=== PATIENT | male | born 1990 | race Caucasian/White ===

== ENCOUNTER 2016-07-19 12:24 | Emergency (ER) | payer OTHER ==
--- NOTE | 2016-07-19 12:58 | ER Document Report ---
ED Medical Screen (RME) - General Chief Complaint: Chest Pain Stated Complaint: CHEST PAIN Notes: Patient has been experiencing mid anterior chest pains which come and go over the past week. They are worsened if he is up and walking, and decreased to be slowing down. The pain seemed to radiate into his left shoulder and arm. Patient has felt some runny nose over the last couple of days, but denies any cough or cold or chest congestion or URI symptoms. No shortness of breath or difficulty breathing. No fevers. No significant past medical history. Does smoke cigarettes. EKG shows QRS complexes that look like LVH or, more likely, early repolarization. I think this is a normal EKG variant. TRAVEL OUTSIDE OF THE [place] IN LAST 30 DAYS: No - Related Data Allergies/Adverse Reactions: No Known Allergies Allergy (Verified 07/19/16 12:36) Past Medical History Pulmonary Medical History: Reports: Hx Asthma Renal/ Medical History: Denies: Hx Peritoneal Dialysis Psychiatric Medical History: Reports: Hx Attention Deficit Hyperactivity Disorder, Hx Depression - Immunizations Hx Diphtheria, Pertussis, Tetanus Vaccination: Yes - unkown Physical Exam - Vital signs Vitals: Temp Pulse Resp BP Pulse Ox 98.4 F 97 20 120/58 L 98 07/19/16 12:35 07/19/16 12:35 07/19/16 12:35 07/19/16 12:35 07/19/16 12:35 Course - Vital Signs Vital signs: Temp Pulse Resp BP Pulse Ox 98.4 F 97 20 120/58 L 98 07/19/16 12:35 07/19/16 12:35 07/19/16 12:35 07/19/16 12:35 07/19/16 12:35
[2016-07-19 13:48] LABS: ABSOLUTE EOSINOPHILS # (AUTO) 0.1 10^3/uL (0.0-0.6); ABSOLUTE LYMPHOCYTES (AUTO) 0.9 10^3/uL (0.5-4.7); ABSOLUTE MONOCYTES (AUTO) 0.6 10^3/uL (0.1-1.4); BASOPHILS % (AUTO) 0.8 % (0-2); EOSINOPHILS % (AUTO) 2.5 % (0-6); HEMATOCRIT 47.3 % (37.9-51.0); HEMOGLOBIN 16.2 g/dL (13.5-17.0); HGB HCT DIFFERENCE 1.3; LYMPHOCYTES % (AUTO) 16.6 % (13-45); MEAN CORPUSCULAR HEMOGLOBIN 31.1 pg (27.0-33.4); MEAN CORPUSCULAR HGB CONC 34.2 g/dL (32.0-36.0); MEAN CORPUSCULAR VOLUME 91 fl (80-97); MONOCYTES % (AUTO) 9.8 % (3-13); RED CELL DISTRIBUTION WIDTH 12.4 % (11.5-14.0); SEGMENTED NEUTROPHILS % (AUTO) 70.3 % (42-78); WHITE BLOOD COUNT 5.7 10^3/uL (4.0-10.5)
[2016-07-19 14:10] LABS: ALANINE AMINOTRANSFERASE 45 U/L (21-72); ALBUMIN 4.6 g/dL (3.5-5.0); ALKALINE PHOSPHATASE 50 U/L (38-126); ANION GAP 15 (5-19); ASPARTATE AMINO TRANSFERASE 36 U/L (17-59); BILIRUBIN,DIRECT 0.2 mg/dL (0.0-0.4); BILIRUBIN,TOTAL 0.7 mg/dL (0.2-1.3); BLOOD UREA NITROGEN 10 mg/dL (7-20); C-REACTIVE PROTEIN 16.2 mg/L (<10.0); CALCIUM 9.6 mg/dL (8.4-10.2); CARBON DIOXIDE 27 mmol/L (22-30); CHLORIDE 101 mmol/L (98-107); CREATINE KINASE 79 U/L (55-170); CREATININE RESULT 0.72 mg/dL (0.52-1.25); GLUCOSE 125 mg/dL (75-110); POTASSIUM 4.2 mmol/L (3.6-5.0); SODIUM 142.9 mmol/L (137-145); TOTAL PROTEIN 7.6 g/dL (6.3-8.2)
[2016-07-19 14:19] LABS: CREATINE KINASE MB 0.38 ng/mL (<4.55)
[2016-07-19 14:24] LABS: TROPONIN I < 0.012 ng/mL
[2016-07-19 14:33] LABS: ERYTHROCYTE SEDIMENTATION RATE 4 mm/hr (0-15)
[2016-07-19 14:52] VITALS: BP 125/75
--- NOTE | 2016-07-19 14:55 | ER Document Report ---
ED General - General Chief Complaint: Chest Pain Stated Complaint: CHEST PAIN Mode of Arrival: Ambulatory Information source: Patient Notes: 25-year-old male presents with complaints of chest pain. Patient notes the pain worsens when he sits forward results when he lays back patient denies any fevers or chills denies any shortness breath difficult to breathing patient denies any previous similar episodes. Patient denies any family history of cardiac events TRAVEL OUTSIDE OF THE [place] IN LAST 30 DAYS: No - HPI Onset: Last week Onset/Duration: Persistent Quality of pain: Sharp Severity: Mild Pain Level: 1 Associated symptoms: Chest pain Exacerbated by: Denies Relieved by: Denies Similar symptoms previously: No Recently seen / treated by doctor: No - Related Data Allergies/Adverse Reactions: No Known Allergies Allergy (Verified 07/19/16 12:36) Past Medical History - Social History Smoking Status: Never Smoker Cigarette use (# per day): No Chew tobacco use (# tins/day): No Smoking Education Provided: No Family History: Reviewed & Not Pertinent Patient has suicidal ideation: No Patient has homicidal ideation: No Pulmonary Medical History: Reports: Hx Asthma Renal/ Medical History: Denies: Hx Peritoneal Dialysis Psychiatric Medical History: Reports: Hx Attention Deficit Hyperactivity Disorder, Hx Depression - Immunizations Hx Diphtheria, Pertussis, Tetanus Vaccination: Yes - unkown Review of Systems - Review of Systems Notes: REVIEW OF SYSTEMS: CONSTITUTIONAL : Denies fever, chills, or sweats. Denies recent illness. EENT: Denies eye, ear, throat, or mouth pain or symptoms. Denies nasal or sinus congestion or discharge. Denies throat, tongue, or mouth swelling or difficulty swallowing. CARDIOVASCULAR: Admits chest pain RESPIRATORY: Denies cough, cold, or chest congestion. Denies shortness of breath, difficulty breathing, or wheezing. GASTROINTESTINAL: Denies abdominal pain or distention. Denies nausea, vomiting , or diarrhea. Denies blood in vomitus, stools, or per rectum. Denies black, tarry stools. Denies constipation. GENITOURINARY: Denies difficulty urinating, painful urination, burning, frequency, blood in urine, or discharge. MUSCULOSKELETAL: Denies back or neck pain or stiffness. Denies joint pain or swelling. SKIN: Denies rash, lesions or sores. HEMATOLOGIC : Denies easy bruising or bleeding. LYMPHATIC: Denies swollen, enlarged glands. NEUROLOGICAL: Denies confusion or altered mental status. Denies passing out or loss of consciousness. Denies dizziness or lightheadedness. Denies headache. Denies weakness or paralysis or loss of use of either side. Denies problems with gait or speech. Denies sensory loss, numbness, or tingling. Denies seizures. PSYCHIATRIC: Denies anxiety or stress. Denies depression, suicidal ideation, or homicidal ideation. ALL OTHER SYSTEMS REVIEWED AND NEGATIVE. Dictation was performed using [employer] voice recognition software PHYSICAL EXAMINATION: GENERAL: Well-appearing, well-nourished and in no acute distress. HEAD: Atraumatic, normocephalic. EYES: Pupils equal round and reactive to light, extraocular movements intact, sclera anicteric, conjunctiva are normal. ENT: Nares patent, oropharynx clear without exudates. Moist mucous membranes. NECK: Normal range of motion, supple without lymphadenopathy LUNGS: Breath sounds clear to auscultation bilaterally and equal. No wheezes rales or rhonchi. HEART: Regular rate and rhythm without murmurs ABDOMEN: Soft, nontender, nondistended abdomen. No guarding, no rebound. No masses appreciated. Musculoskeletal: Normal range of motion, no pitting or edema. No cyanosis. NEUROLOGICAL: Cranial nerves grossly intact. Normal speech, normal gait. Normal sensory, motor exams PSYCH: Normal mood, normal affect. SKIN: Warm, Dry, normal turgor, no rashes or lesions noted. Physical Exam - Vital signs Vitals: Temp Pulse Resp BP Pulse Ox 98.4 F 97 20 120/58 L 98 07/19/16 12:35 07/19/16 12:35 07/19/16 12:35 07/19/16 12:35 07/19/16 12:35 Course - Re-evaluation Re-evalutation: 07/19/16 14:55 Patient's EKG is consistent with peaked T waves, no significant reciprocal changes noted, patient's presentation is consistent with pericarditis, CRP is elevated which would fit this picture. I did speak with Dr. Mchugh who agrees with this evaluation, patient will be started on anti-inflammatory given follow- up with him tomorrow for reevaluation After performing a Medical Screening Examination, I estimate there is LOW risk for RUPTURED ESOPHAGUS, PNEUMOTHORAX, PULMONARY EMBOLISM, ACUTE CORONARY SYNDROME, OR THORACIC AORTIC DISSECTION, thus I consider the discharge disposition reasonable. I have reevaluated this patient multiple times and no significant life threatening changes are noted. The patient and I have discussed the diagnosis and risks, and we agree with discharging home with close follow-up. We also discussed returning to the Emergency Department immediately if new or worsening symptoms occur. We have discussed the symptoms which are most concerning (e.g., bloody sputum, worsening pain or shortness of breath) that necessitate immediate return. - Vital Signs Vital signs: Temp Pulse Resp BP Pulse Ox 98.4 F 97 20 120/58 L 98 07/19/16 12:35 07/19/16 12:35 07/19/16 12:35 07/19/16 12:35 07/19/16 12:35 - Laboratory Result Diagrams: 07/19/16 13:30 07/19/16 13:30 Laboratory results interpreted by me: 07/19/16 13:30 Glucose 125 H C-Reactive Protein 16.2 H - Diagnostic Test Radiology reviewed: Image reviewed, Reports reviewed - EKG Interpretation by Me EKG shows normal: Sinus rhythm, [place], Intervals, QRS Complexes - Peaked T waves in leads V2 V3 and V4 V5 Discharge - Discharge Clinical Impression: Pericarditis Qualifiers: Pericarditis type: unspecified type Chronicity: acute Qualified Code(s): I30.9 - Acute pericarditis, unspecified Chest pain Qualifiers: Chest pain type: unspecified Qualified Code(s): R07.9 - Chest pain, unspecified Condition: Stable Disposition: HOME, SELF-CARE Instructions: Pericarditis ([facility]) Prescriptions: Naproxen 500 mg PO BID #30 tablet Referrals: YULIANA MCHUGH MD [ACTIVE STAFF] - Follow up tomorrow
--- NOTE | 2016-07-19 20:06 | EKG REPORT ---
SEVERITY:- OTHERWISE NORMAL ECG - SINUS RHYTHM BORDERLINE RIGHT AXIS DEVIATION ST ELEV, PROBABLE NORMAL EARLY REPOL PATTERN : Confirmed by: Sheyla Kitchen MD 19-Jul-2016 20:04:58
== END 2016-07-19 15:07 | disposition home or self-care (01) ==
LOC: ER 12:24
DX: I30.9 Acute pericarditis, unspecified (principal); R07.9 Chest pain, unspecified
CPT/HCPCS: 36415; 71020; 80053; 82550; 82553; 84484; 85025; 85652; 86140; 93005; 93010; 99285

== ENCOUNTER 2016-07-21 23:12 | Emergency (ER) | payer OTHER ==
[2016-07-21] MEDS ORDERED: KETOROLAC TROMETHAMINE INJ/PF 30 MG/1 ML SDV IV ONE (23:48)
--- NOTE | 2016-07-21 23:53 | ER Document Report ---
ED General - General Chief Complaint: Chest Pain Stated Complaint: CHEST PAIN Notes: Patient is a 25-year-old male without past medical history who presents with concerns of ongoing left-sided chest pain. He does described as an intermittent , sharp, stabbing, severe pain. He states the pain is intermittent and nothing seems to worsen it or improve it. He was seen several days ago the emergency department and diagnosed with pericarditis. He has not yet started naproxen with which he was sent home. He is scheduled to follow-up with cardiology for the possible diagnosis of pericarditis. Patient has not had any associated vomiting, diaphoresis, syncope, or shortness of breath. Exertion does not worsen his symptoms. No history of similar symptoms in the past. TRAVEL OUTSIDE OF THE [place] IN LAST 30 DAYS: No - Related Data Allergies/Adverse Reactions: No Known Allergies Allergy (Verified 07/19/16 12:36) Past Medical History - General Information source: Patient - Social History Smoking Status: Never Smoker Frequency of alcohol use: None Drug Abuse: None Lives with: Spouse/Significant other Family History: Reviewed & Not Pertinent Pulmonary Medical History: Reports: Hx Asthma Renal/ Medical History: Denies: Hx Peritoneal Dialysis Psychiatric Medical History: Reports: Hx Attention Deficit Hyperactivity Disorder, Hx Depression - Immunizations Hx Diphtheria, Pertussis, Tetanus Vaccination: Yes - unkown Review of Systems - Review of Systems Notes: Constitutional: Negative for fever. HENT: Negative for sore throat. Eyes: Negative for visual changes. Cardiovascular: Positive for chest pain. Respiratory: Negative for shortness of breath. Gastrointestinal: Negative for abdominal pain, vomiting or diarrhea. Genitourinary: Negative for dysuria. Musculoskeletal: Negative for back pain. Skin: Negative for rash. Neurological: Negative for headaches, weakness or numbness. 10 point ROS negative except as marked above and in HPI. Physical Exam - Vital signs Vitals: Temp Pulse Resp BP Pulse Ox 98.6 F 77 18 135/77 H 100 07/21/16 23:23 07/21/16 23:23 07/21/16 23:23 07/21/16 23:23 07/21/16 23:23 Interpretation: Normal Notes: PHYSICAL EXAMINATION: GENERAL: Well-appearing, well-nourished and in no acute distress. HEAD: Atraumatic, normocephalic. EYES: Pupils equal round and reactive to light, extraocular movements intact, sclera anicteric, conjunctiva are normal. ENT: nares patent, oropharynx clear without exudates. Moist mucous membranes. NECK: Normal range of motion, supple without lymphadenopathy LUNGS: Breath sounds clear to auscultation bilaterally and equal. No wheezes rales or rhonchi. HEART: Regular rate and rhythm without murmurs Chest wall: Reproducible pain on palpation of the left chest wall ABDOMEN: Soft, nontender, normoactive bowel sounds. No guarding, no rebound. No masses appreciated. EXTREMITIES: Normal range of motion, no pitting or edema. No cyanosis. NEUROLOGICAL: No focal neurological deficits. Moves all extremities spontaneously and on command. PSYCH: Normal mood, normal affect. SKIN: Warm, Dry, normal turgor, no rashes or lesions noted. Course - Re-evaluation Re-evalutation: 07/21/16 23:49 Patient presents with ongoing intermittent left-sided chest pain but is otherwise very well in appearance. Patient is PERC criteria negative and I do not suspect an acute pulmonary embolus. No tachycardia, dyspnea or hypoxemia. Bedside echocardiogram does not demonstrate any evidence of a pericardial effusion or regional wall motion abnormalities. His EKG remains unchanged and does not appear consistent with pericarditis to me. There are no ST elevations and no [place] depressions. Peak T waves and isolation will be an atypical finding for pericarditis. However, given that patient did have some positional discomfort it is a possible diagnosis. Alternative differential considerations include costochondritis as patient is exquisitely tender on palpation the left chest wall and does have pain with movement and coughing. Will obtain a repeat troponin to ensure that there is no evidence of myocardial injury either from myopericarditis or an acute ischemic injury again for which I have a very low clinical suspicion. If this remains normal plan for discharge home with return precautions, recommendations to actually begin using NSAIDs that were prescribed to him as he has not started using these, and return precautions. - Vital Signs Vital signs: Temp Pulse Resp BP Pulse Ox 97.8 F 69 18 133/71 H 98 07/22/16 01:34 07/22/16 01:34 07/22/16 01:34 07/22/16 01:34 07/22/16 01:34 - EKG Interpretation by Me Additional EKG results interpreted by me: 07/21/16 23:52 Normal sinus rhythm. Rate 99. No ST elevations or depressions. Early repolarization. No significant T-wave peaks. Unchanged from prior. Discharge - Discharge Clinical Impression: Chest pain Qualifiers: Chest pain type: unspecified Qualified Code(s): R07.9 - Chest pain, unspecified Condition: Good Disposition: HOME, SELF-CARE Additional Instructions: Your chest pain is likely related to inflammation of your chest wall or possible pericarditis a lead EKG does not suggest this diagnosis. You should begin taking ibuprofen 600 mg every 6 hours as needed for discomfort. Return if you develop persistent shortness of breath, vomiting, pass out, or have any other symptoms that are worrisome to you.
[2016-07-22 01:38] VITALS: BP 133/71
--- NOTE | 2016-07-23 16:57 | EKG REPORT ---
SEVERITY:- OTHERWISE NORMAL ECG - SINUS RHYTHM BORDERLINE RIGHT AXIS DEVIATION ST ELEV, PROBABLE NORMAL EARLY REPOL PATTERN : Confirmed by: Sheyla Kitchen MD 23-Jul-2016 16:57:03
== END 2016-07-22 01:38 | disposition home or self-care (01) ==
LOC: ER 23:12
DX: R07.9 Chest pain, unspecified (principal); J45.909 Unspecified asthma, uncomplicated
CPT/HCPCS: 93005; 99285; 96374; 36415; 84484; 93010; J1885

== ENCOUNTER 2018-03-18 22:00 | Emergency (ER) | payer OTHER ==
[2018-03-18] MEDS ORDERED: METOCLOPRAMIDE HCL ORAL SOLN 10 MG/10 ML UDCUP PO ONE (22:51)
[2018-03-18] MEDS ORDERED: MAG HYDROX/AL HYDROX/SIMETH SUSP 30 ML UDCUP PO ONE (22:51)
[2018-03-18] MEDS ORDERED: LIDOCAINE 2% VISCOUS SOLN 20 ML UDCUP PO ONE (22:51)
--- NOTE | 2018-03-18 22:53 | ER Document Report ---
ED Medical Screen (RME) - General Chief Complaint: Epigastric Pain Stated Complaint: CHEST PAIN Time Seen by Provider: 03/18/18 22:49 Notes: Patient is a 27-year-old male presents to the emergency department after choking episode on steak. Patient states he was eating steak when he felt as though it got stuck in his throat. Patient states he started coughing a lot and then inevitably vomited. States that he did vomit the piece of steak. States since that episode he has been unable to swallow his secretions and has some chest discomfort. Past medical history: Pericarditis, asthma Medications: Albuterol Allergies: None Physical exam: Lung sounds clear and equal all ramos, no crepitus, ecchymosis, erythema noted to anterior posterior chest wall. I have greeted and performed a rapid initial assessment of this patient. A comprehensive ED assessment and evaluation of the patient, analysis of test results and completion of the medical decision making process will be conducted by additional ED providers. TRAVEL OUTSIDE OF THE [place] IN LAST 30 DAYS: No - Related Data Allergies/Adverse Reactions: No Known Allergies Allergy (Verified 07/19/16 12:36) Past Medical History Pulmonary Medical History: Reports: Hx Asthma Renal/ Medical History: Denies: Hx Peritoneal Dialysis Psychiatric Medical History: Reports: Hx Attention Deficit Hyperactivity Disorder, Hx Depression - Immunizations Hx Diphtheria, Pertussis, Tetanus Vaccination: Yes - unkown Physical Exam - Vital signs Vitals: Temp Pulse Resp BP Pulse Ox 97.8 F 92 16 119/76 96 03/18/18 22:27 03/18/18 22:27 03/18/18 22:27 03/18/18 22:27 03/18/18 22:27 Course - Vital Signs Vital signs: Temp Pulse Resp BP Pulse Ox 97.8 F 92 16 119/76 96 03/18/18 22:27 03/18/18 22:27 03/18/18 22:27 03/18/18 22:27 03/18/18 22:27
[2018-03-19] MEDS ORDERED: ONDANSETRON 4 MG TAB.RAPDIS PO ONE (01:05)
--- NOTE | 2018-03-19 01:06 | ER Document Report ---
ED GI/ - General Chief Complaint: Epigastric Pain Stated Complaint: CHEST PAIN Time Seen by Provider: 03/18/18 22:49 Notes: 27-year-old male to the emergency department chief complaint of feels like something stuck in his throat. Patient was eating some chicken. [place] like something got stuck in his throat. Had significant pain in the mid chest area and epigastric region. Vomited. Has been vomiting but still feels like something is stuck. Every time he tries to swallow he feels like he needs to vomit. Not tried to drink anything yet. TRAVEL OUTSIDE OF THE [place] IN LAST 30 DAYS: No - HPI Onset: Just prior to arrival Timing/Duration: Constant Quality of pain: [place] Severity at maximum: Severe Severity in ED: Moderate Pain Level: 3 Location: Chest pain, Epigastric Associated symptoms: Nausea, Vomiting Exacerbated by: Food - Related Data Allergies/Adverse Reactions: No Known Allergies Allergy (Verified 07/19/16 12:36) Past Medical History - General Information source: Patient - Social History Smoking Status: Never Smoker Chew tobacco use (# tins/day): Yes Frequency of alcohol use: None Drug Abuse: None Lives with: Family Family History: Reviewed & Not Pertinent Patient has suicidal ideation: No Patient has homicidal ideation: No Pulmonary Medical History: Reports: Hx Asthma Renal/ Medical History: Denies: Hx Peritoneal Dialysis Psychiatric Medical History: Reports: Hx Attention Deficit Hyperactivity Disorder, Hx Depression - Immunizations Hx Diphtheria, Pertussis, Tetanus Vaccination: Yes - unkown Review of Systems - Review of Systems Notes: Constitutional: denies: Chills, Diaphoresis, Fever, Malaise, Weakness EENT: denies: Eye discharge, Blurred vision, Tearing, Double vision, Nose congestion, Nose discharge, Throat swelling, Mouth pain Cardiovascular: denies: Palpitations, Heart racing, Orthopnea, Dyspnea, Chest pain Respiratory: denies: Cough, Hurts to breathe, Wheezing, Shortness of breath Gastrointestinal: Abdominal pain, nausea, vomiting, feeling of something stuck in his throat Genitourinary: denies: Burning, Dysuria, Discharge, Frequency, Flank pain, Hematuria Musculoskeletal: denies: Joint pain, Joint swelling, Muscle pain, Muscle stiffness, back pain Hematologic/Lymphatic: denies: Anemia, Easy bleeding, Easy bruising, Blood clots Neurological/Psychological: denies: Confusion, Dementia, Depression, Loss of consciousness Skin: No lesions, no masses, no skin breakdown, no abscesses Physical Exam - Vital signs Vitals: Temp Pulse Resp BP Pulse Ox 97.8 F 92 16 119/76 96 03/18/18 22:27 03/18/18 22:27 03/18/18 22:27 03/18/18 22:27 03/18/18 22:27 Interpretation: Normal - General General appearance: Appears well, Alert - HEENT Head: Normocephalic, Atraumatic Eyes: Normal Pupils: PERRL - Respiratory Respiratory status: No respiratory distress Chest status: Nontender Breath sounds: Normal Chest palpation: Normal - Cardiovascular Rhythm: Regular Heart sounds: Normal auscultation Murmur: No - Abdominal Inspection: Normal Distension: No distension Bowel sounds: Normal Tenderness: Nontender Organomegaly: No organomegaly - Back Back: Normal, Nontender - Extremities General upper extremity: Normal inspection, Nontender, Normal color, Normal ROM , Normal temperature General lower extremity: Normal inspection, Nontender, Normal color, Normal ROM , Normal temperature, Normal weight bearing. No: Marychuy's sign - Neurological Neuro grossly intact: Yes Cognition: Normal Orientation: AAOx4 Rosie Coma Scale Eye Opening: Spontaneous Rosie Coma Scale Verbal: Oriented Rosie Coma Scale Motor: Obeys Commands [place] Coma Scale Total: 15 Speech: Normal Motor strength normal: LUE, RUE, LLE, RLE Sensory: Normal - Psychological Associated symptoms: Normal affect, Normal mood - Skin Skin Temperature: Warm Skin Moisture: Dry Skin Color: Normal Course - Re-evaluation Re-evalutation: 03/19/18 03:07 Laboratory 03/19/18 03/19/18 01:30 01:30 WBC 10.0 RBC 5.42 Hgb 17.1 H Hct 47.7 MCV 88 MCH 31.6 MCHC 35.9 RDW 12.5 Plt Count 247 Seg Neutrophils % 56.9 Lymphocytes % 26.4 Monocytes % 9.9 Eosinophils % 6.1 H Basophils % 0.7 Absolute Neutrophils 5.7 Absolute Lymphocytes 2.6 Absolute Monocytes 1.0 Absolute Eosinophils 0.6 Absolute Basophils 0.1 Sodium 145.4 H Potassium 4.4 Chloride 105 Carbon Dioxide 29 Anion Gap 11 BUN 10 Creatinine 0.80 Est GFR ( Amer) > 60 Est GFR (Non-Af Amer) > 60 Glucose 98 Calcium 10.3 H Total Bilirubin 1.4 H Direct Bilirubin 0.4 Neonat Total Bilirubin Not Reportable Neonat Direct Bilirubin Not Reportable Neonat Indirect Bili Not Reportable AST 37 ALT 27 Alkaline Phosphatase 56 Total Protein 8.2 Albumin 5.0 Lipase 138.5 Chest X-Ray 03/19/18 01:19 IMPRESSION: No acute cardiopulmonary abnormality copyright 2011 [employer]- All Rights Reserved Patient is now swallowing and keeping the soda down. Wants to go home. Will DC at this time. - Vital Signs Vital signs: Temp Pulse Resp BP Pulse Ox 97.8 F 92 16 119/76 96 03/18/18 22:27 03/18/18 22:27 03/18/18 22:27 03/18/18 22:27 03/18/18 22:27 - Laboratory Result Diagrams: 03/19/18 01:30 03/19/18 01:30 Laboratory results interpreted by me: 03/19/18 03/19/18 01:30 01:30 Hgb 17.1 H Eosinophils % 6.1 H Sodium 145.4 H Calcium 10.3 H Total Bilirubin 1.4 H - EKG Interpretation by Nv EKG shows normal: Sinus rhythm, [place], Intervals, QRS Complexes, ST-T Waves When compared to previous EKG there are: No significant change Discharge - Discharge Clinical Impression: Esophageal foreign body Qualifiers: Encounter type: initial encounter Qualified Code(s): T18.108A - Unspecified foreign body in esophagus causing other injury, initial encounter Condition: Good Disposition: HOME, SELF-CARE Instructions: Esophageal Spasm ([facility]) Additional Instructions: In the event that you begin having difficulty swallowing or keeping liquids or food down please return immediately as you may require further intervention. Forms: Return to Work Referrals: KRISTI NAQVI MD [ACTIVE STAFF] - Follow up as needed
[2018-03-19] MEDS ORDERED: FAMOTIDINE INJ/PF 20 MG/2 ML SDV IV ONE (01:23)
[2018-03-19] MEDS ORDERED: ONDANSETRON 4 MG TAB.RAPDIS ONE (01:25)
[2018-03-19] MEDS ORDERED: GLUCAGON,HUMAN RECOMB 1 MG INJ IV ONE (01:44)
--- NOTE | 2018-03-19 02:06 | RADIOLOGY REPORT (SQ) ---
EXAM DESCRIPTION: XR CHEST 1 VIEW COMPLETED DATE/TME: 03/19/2018 01:19 CLINICAL HISTORY: 27 years, Male, difficulty swallowing COMPARISON: 07/19/2016 NUMBER OF VIEWS: Two TECHNIQUE: Two views of the chest LIMITATIONS: None. FINDINGS: The lungs are clear. The heart is normal in size. There is no pneumothorax or pleural effusion. There is no acute fracture IMPRESSION: No acute cardiopulmonary abnormality copyright 2010 [employer]- All Rights Reserved
[2018-03-19] MEDS ORDERED: ONDANSETRON HCL INJ/PF 4 MG/2 ML SDV IV PRN (02:16)
[2018-03-19] MEDS ORDERED: ONDANSETRON HCL INJ/PF 4 MG/2 ML SDV ONE (02:17)
[2018-03-19 02:24] LABS: ABSOLUTE BASOPHILS # (AUTO) 0.1 10^3/uL (0.0-0.2); ABSOLUTE EOSINOPHILS # (AUTO) 0.6 10^3/uL (0.0-0.6); ABSOLUTE LYMPHOCYTES (AUTO) 2.6 10^3/uL (0.5-4.7); ABSOLUTE NEUT (AUTO) 5.7 10^3/uL (1.7-8.2); BASOPHILS % (AUTO) 0.7 % (0-2); EOSINOPHILS % (AUTO) 6.1 % (0-6); HEMATOCRIT 47.7 % (37.9-51.0); HEMOGLOBIN 17.1 g/dL (13.5-17.0); LYMPHOCYTES % (AUTO) 26.4 % (13-45); MEAN CORPUSCULAR HEMOGLOBIN 31.6 pg (27.0-33.4); MEAN CORPUSCULAR HGB CONC 35.9 g/dL (32.0-36.0); MEAN CORPUSCULAR VOLUME 88 fl (80-97); MONOCYTES % (AUTO) 9.9 % (3-13); PLATELET COUNT 247 10^3/uL (150-450); RED BLOOD COUNT 5.42 10^6/uL (4.35-5.55); RED CELL DISTRIBUTION WIDTH 12.5 % (11.5-14.0); SEGMENTED NEUTROPHILS % (AUTO) 56.9 % (42-78); TOTAL CELLS COUNTED % (AUTO) 100 %
[2018-03-19 02:45] LABS: ALANINE AMINOTRANSFERASE 27 U/L (21-72); ALKALINE PHOSPHATASE 56 U/L (38-126); ANION GAP 11 (5-19); ASPARTATE AMINO TRANSFERASE 37 U/L (17-59); BILIRUBIN,DIRECT 0.4 mg/dL (0.0-0.4); BILIRUBIN,TOTAL 1.4 mg/dL (0.2-1.3); BLOOD UREA NITROGEN 10 mg/dL (7-20); CALCIUM 10.3 mg/dL (8.4-10.2); CARBON DIOXIDE 29 mmol/L (22-30); CHLORIDE 105 mmol/L (98-107); GLUCOSE 98 mg/dL (75-110); LIPASE 138.5 U/L (23-300); POTASSIUM 4.4 mmol/L (3.6-5.0); SODIUM 145.4 mmol/L (137-145); TOTAL PROTEIN 8.2 g/dL (6.3-8.2)
[2018-03-19 03:26] VITALS: BP 135/83
--- NOTE | 2018-03-19 07:42 | EKG REPORT ---
SEVERITY:- ABNORMAL ECG - SINUS RHYTHM BORDERLINE RIGHT AXIS DEVIATION ST ELEV, PROBABLE NORMAL EARLY REPOL PATTERN : Confirmed by: Guillaume Novak MD 19-Mar-2018 07:41:49
== END 2018-03-19 03:26 | disposition home or self-care (01) ==
LOC: ER 22:00
DX: T18.108A Unspecified foreign body in esophagus causing other injury, initial encounter (principal); X58.XXXA Exposure to other specified factors, initial encounter; R07.9 Chest pain, unspecified; R10.13 Epigastric pain; R11.2 Nausea with vomiting, unspecified; J45.909 Unspecified asthma, uncomplicated; Z72.0 Tobacco use
CPT/HCPCS: 93005; 99284; 96374; 96375; 36415; 83690; 85025; 80053; 71045; 93010; S0119; J1610; J2405; S0028